=== PATIENT | female | born 1960 | race Caucasian/White ===

== ENCOUNTER 2017-09-06 18:25 | Emergency (ER) | payer OTHER ==
[~2017-09-06] VITALS: Ht 160 cm; Wt 61.2 kg
[2017-09-06 18:30] VITALS: BP 141/75
--- NOTE | 2017-09-06 18:30 | NUR ---
PT PLACED IN BED 10 BY EMS
--- NOTE | 2017-09-06 18:31 | NUR ---
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 PT DENIES ANY LOC. RR ARE EVEN AND UNLABORED. PT STS PIECE OF MEAT IS STUCK IN "FOOD PIPE".HX--HTN.DENIES N/V/D; SKIN IS PINK/WARM/DRY; AAOX4 WITH EVEN AND STEADY GAIT; LUNGS CLEAR BL; PT DENIES ANY FEVER OR COUGH AT THIS TIME; PATIENT STATES PAIN OF 7/10 AT THIS TIME; PATIENT POSITIONED FOR COMFORT; HOB ELEVATED; BEDRAILS UP X2; BED DOWN. ER MD MADE AWARE OF PT STATUS.
--- NOTE | 2017-09-06 18:45 | NUR ---
Patient being evaluated by physician at bedside.
--- NOTE | 2017-09-06 19:03 | NUR ---
Pt report given to [facility]. Transfer of care at this time.
[2017-09-06 19:04] VITALS: BP 138/76
--- NOTE | 2017-09-06 19:04 | NUR ---
Patient discharged with v/s stable. Written and verbal after care instructions given and explained BY DR SCHMITZ. Patient alert, oriented and verbalized understanding of instructions. Ambulatory with steady gait. All questions addressed prior to discharge. ID band removed. Patient advised to follow up with PMD. Rx of ZANTAC given. Patient educated on indication of medication including possible reaction and side effects. Opportunity to ask questions provided and answered.
== END 2017-09-06 19:04 | disposition home or self-care (01) ==
LOC: MED 18:25
DX: R09.89 Other specified symptoms and signs involving the circulatory and respiratory systems (principal); I10 Essential (primary) hypertension
CPT/HCPCS: 71045; 99283